=== PATIENT | female | born 1950 | race Caucasian/White ===

== ENCOUNTER 2019-02-26 17:29 | Inpatient (IN) | payer MEDICARE, OTHER ==
[2019-02-26] MEDS ORDERED: Piperacillin/Tazobac ADVAN(*) 3.375 GM in NS 0.9% 100 ML* 100 ML IVPB ONE ×2 (18:53→20:30)
[2019-02-26] MEDS ORDERED: Zosyn per Pharmacy* NOTE FOLLOW UP SCH (19:00)
[2019-02-26] MEDS ORDERED: Lactated Ringers 1000 ML Bag* 1,000 ML IV SCH (19:00)
[2019-02-26] MEDS ORDERED: Morphine 4 MG/ML VIAL (1 ml) 4 MG/ML VIAL ONE (19:05)
[2019-02-26] MEDS ORDERED: Ondansetron INJ* 2 MG/ML VIAL IV PRN (19:34)
[2019-02-26] MEDS: Enoxaparin(*) 40 MG/0.4 ML SYR SUBCUT SCH (20:19)
--- NOTE | 2019-02-26 20:19 | CONS ---
CONSULTATION REPORT: DATE OF CONSULT: 02/26/19 SERVICE: General Surgery. ATTENDING SURGEON: Dr. Eve Nur. REQUESTING PHYSICIAN: Dr. Delia Bartlett. REASON FOR CONSULT: Diverticulitis with small extraluminal air and localized perforation. HISTORY OF PRESENT ILLNESS: Ms. Tinajero is a very pleasant 68-year-old female with a history of hypertension, fibromyalgia, hypothyroidism, who presents as a direct admission for recurrent diverticulitis. The patient's history began approximately 2-1/2 weeks ago when she was seen by her primary care physician, Dr. Bartlett, for abdominal pain. She soon went to [place] to visit her daughter but her pain persisted and she was admitted to [facility] for acute diverticulitis. She says during her hospitalization she had a CT scan, she was made n.p.o., she was on IV antibiotics, and she was hospitalized for 4 days. She eventually improved to the point where her diet had been advanced and she was able to be discharged home on oral antibiotics. After this, she continued on oral antibiotics until 02/20/19; however, since then, she started feeling progressively worse and has had more abdominal pain. She was seen by Dr. Bartlett on Saturday and at that time had some pain, but began to progressively have more pain yesterday. In the past 24 hours, she says that her pain has worsened to the point where it is about 9/10. She says that her pain is limited to her lower abdomen on both the right ; however, overall it is still better than it was when she was admitted to [place]. Dr. Bartlett saw her in the office today and ordered a CT scan, which returned showing sigmoid diverticulitis as well as foci of pericolonic air reflecting a localized perforation; therefore, she was directly admitted by Dr. Bartlett, who requested surgical consultation. The patient currently complains of abdominal pain that she rates as a 9/10. She says that she does have nausea, but she denies having vomiting or emesis. She has been having diarrhea since yesterday, but prior to that she did not have a bowel movement since about Saturday. She normally alternates between being constipated and having diarrhea, and she had a colonoscopy approximately 6 months ago that she said was normal except for diverticulosis. There is no history of colon cancer in her family and she has had no abdominal surgical history in the past. PAST MEDICAL HISTORY: 1. Hypertension. 2. GERD. 3. Asthma. 4. Hypothyroidism. 5. Fibromyalgia. PAST SURGICAL HISTORY: Bilateral knee replacements and shoulder surgery. MEDICATIONS: 1. Cetirizine 10 mg p.o. daily. 2. Colace 100 mg p.o. daily. 3. Fiber 1 tab p.o. daily. 4. Advair 1 puff inhaled b.i.d. 5. Levothyroxine 25 mcg p.o. daily. 6. Cytomel p.o. b.i.d. 7. Multivitamin. 8. Daypro. 9. Nasacort. ALLERGIES: No known drug allergies. FAMILY HISTORY: Her father of cancer, but there is no known colon cancer history in her family. SOCIAL HISTORY: The patient is retired. She is a nonsmoker. She lives in [place] with her and she comes up to her home in [place] to see her daughter, who also lives in [place]. REVIEW OF SYSTEMS: Negative except for abdominal pain and nausea. PHYSICAL EXAM: Vital Signs: Temperature is 97.8, pulse is 80, respiratory rate is 16, O2 sat is 97% O2 on room air, blood pressure is 153/67. General: She is an older woman, lying comfortably in bed, in no apparent distress, but uncomfortable. HEENT is normocephalic, atraumatic. Cardiovascular is regular rate and rhythm. Respiratory is clear to auscultation bilaterally. Abdomen is soft, nondistended. Focal tenderness in the left lower quadrant, right lower quadrant and lower suprapubic area. No significant rebound tenderness. Some bruising to the abdominal wall from her prior heparin subcu shots. Extremities : No edema. DIAGNOSTIC STUDIES/LAB DATA: White blood cell count is 14.5, hemoglobin is 14.4 , hematocrit is 43, platelets 577. Sodium is 138, potassium is 4.3, chloride is 102, BUN is 9, creatinine is 0.75, glucose is 102. C-reactive protein is 6. CT abdomen and pelvis shows there is diverticulitis of the sigmoid colon, tiny extraluminal air consistent with a localized perforation. No peridiverticular abscess is noted. No hernia is identified. ASSESSMENT AND PLAN: Ms. Tinajero is a 68-year-old female with a history of hypertension, gastroesophageal reflux disease, asthma and hypothyroidism, who presents with recurrent diverticulitis. Her previous episode about 2-1/2 weeks ago and was her first time having diverticulitis. I have reviewed her imaging. The sigmoid colon is thickened and there is inflammation and on report a small focus of pericolonic air, which I do not definitively see. I have reviewed the diagnosis with the patient and I do not believe that she needs to go to the operating room at this time given that there is no significant abscess or free air or even a phlegmon. Furthermore, she is currently stable, and her white count is 14.5. I have told the patient that she would have to be n.p.o. again and be on IV antibiotics and hopefully she will improve during this hospitalization as well. However, if she fails to improve or if her clinical condition deteriorates, then she may have to go to the operating room for a sigmoid colectomy and likely an ostomy. I told her that with acute inflammation of the colon an ostomy is often performed. I told her if she is able to be discharged during this hospitalization, likely she will have to continue on antibiotics for a longer period of time as well as control her diet with clear liquids for a longer period of time after she is discharged. We will continue to follow this patient with you. Thank you for this consultation. I discussed this patient's care with Dr. Bartlett, who is directly admitting the patient. [id number]/[facility] #: [id number] THEE
[2019-02-26] MEDS: NS 0.45% KCl 20 Meq 1000 ML* 1,000 ML IV SCH (20:21)
[2019-02-26] MEDS: Morphine INJ* 2 MG/ML 1 ML SYRINGE (TWO MG - NEW SYRINGE VERSION) IV PRN ×2 (21:07→23:35)
--- NOTE | 2019-02-26 22:05 | HP ---
HISTORY AND PHYSICAL: DATE OF ADMISSION: 02/26/19 HISTORY: Mar Tinajero is a 68-year-old woman admitted with diverticulitis with perforation. The patient's history is as follows. She was admitted to [facility] on 02/12/19 with lower abdominal pain. She had not felt well the previous day. She had abdominal pain, which she thought was because she was constipated. She tried MiraLAX but it did not help. She had labs, mammogram done on . She then went with her daughter to visit [place]. When she got there, the pain was worse, so she went to an urgent care. She was diagnosed with diverticulitis. They sent her to the hospital and she was admitted for 4 days, treated with Zosyn and then discharged on cefpodoxime and metronidazole. Initially she was on clear liquids and then just on white foods. She was not having normal bowel movements when I saw her in followup on 02/23/19. When I saw her, her abdomen was soft with bilateral lower abdominal tenderness without rebound or guarding. We rechecked labs. I advanced her diet. Labs done on 02/23/19, showed a C- reactive protein of 10.88 and had been in the 90s previously, and white count was 11,000, H and H was 14/42. Since then she has had increasing abdominal pain. She was not feeling better. She came into the office today complaining of bloating and pain. On exam, her abdomen was diffusely more tender but still without rebound. I sent her for a CT, which showed a perforated colon. Her white count was up. I am admitting her at this time. PAST MEDICAL HISTORY: Significant for the following medical problems: 1. Fibromyalgia. 2. Hyperlipidemia. 3. Migraines. 4. Hypertension. 5. B12 deficiency. 6. Diverticulosis. 7. History of bladder prolapse. 8. Pituitary adenoma, benign and stable. 9. Essential tremor. 10. Hypothyroidism. 11. Asthma. 12. Osteoarthritis of the knees, status post bilateral knee replacements. 13. Gastroesophageal reflux disease. 14. Obesity. 15. Vitamin D deficiency. 16. Sleep apnea. 17. Chronic low back pain. PAST SURGICAL HISTORY: Prior surgeries include: 1. Bilateral knee replacements. 2. Left shoulder surgery. 3. Uterine biopsies twice, which were benign. 4. Excision of benign breast cyst. 5. Tonsillectomy and adenoidectomy in childhood. 6. Prior to her knee surgery, she has also had arthroscopic knee surgery in the past. CURRENT MEDICATIONS: 1. Diazepam 2 mg twice a day as needed for posterior headaches, takes rarely. 2. Hydrocodone 5/acetaminophen 325 one every 4 hours as needed for pain. 3. Levalbuterol 0.63/3 mL solution for nebulizer every 8 hours p.r.n. 4. Duloxetine 60 mg daily. 5. Vagifem 10 mg twice a week. 6. Soma 350 mg q.i.d. p.r.n. 7. Advair Diskus 250/50 twice a day. 8. Ventolin HFA 90 mcg 2 inhalations every 4 hours as needed for shortness of breath. 9. Primidone 50 mg 1 to 2 tablets at bedtime. 10. Pantoprazole 40 mg daily. 11. Amlodipine 5 mg daily. 12. Levothyroxine 100 mcg daily. 13. Flonase 2 sprays in each nostril daily. 14. B12 at 1000 mcg daily. 15. Magnesium 250 mg b.i.d. 16. Ondansetron 4 mg q.4 hours p.r.n. nausea. 17. Gaviscon p.r.n. 18. Calcium 1 daily. 19. Vitamin D3 at 2000 units daily. 20. Zyrtec 10 mg daily. 21. MultiVites 1 daily. ALLERGIES: No medication allergies. She has LACTOSE intolerance and she gets hives with STRAWBERRIES. FAMILY HISTORY: Her father had COPD and lung cancer, mother of dementia, 1 brother has a type 2 diabetes mellitus. Her maternal grandmother also had type 2 diabetes mellitus. SOCIAL AND PERSONAL HISTORY: The patient is retired. She and her are now living most of the time in [place]. They are planning to spend time in [place]. She has adult children. REVIEW OF SYSTEMS: Otherwise positive for chronic fatigue, difficulty sleeping , asthma, recent palpitations and rapid pulse which seemed to get better when thyroid dose was adjusted. Hemorrhoids, nocturia, chronic low back pain, migraine headaches, essential tremor. PHYSICAL EXAMINATION GENERAL: She is a obese, well-developed woman, uncomfortable, crying at times in distress with abdominal pain. VITAL SIGNS: Blood pressure 130/78, pulse 102, respirations 18, temperature 98.6, weight 223 pounds which is down 5-1/2 pounds since a month ago. HEENT: Atraumatic, normocephalic. Full EOMs. Mouth: Pharynx shows moist mucous membranes. NECK: Supple. CHEST: Clear. HEART: Normal S1, S2. No murmurs, gallops, or rubs. Apical pulse was 82. ABDOMEN: Soft with diffuse abdominal tenderness, which she rates 8/10 without rebound or guarding. No hepatosplenomegaly. No hernias or masses. Bowel sounds are active. EXTREMITIES: Show scars on the knees from recent total knee replacements. There is no clubbing, cyanosis, or edema. NEUROLOGIC: Without gross focal or lateralizing signs. SKIN: Warm and dry. DIAGNOSTIC STUDIES/LAB DATA: Laboratory from today shows, CBC: WBC 14.5, H and H 14.4/43, MCV 83, PLT 577 K. Chemistry: Sodium 138, potassium 4.3, chloride 102, CO2 30, BUN/creatinine 9/0.75, glucose 102. Rest of her comprehensive metabolic panel within normal limits. Imagiang: CT of the abdomen and pelvis done today shows stable lingular nodule. Thickening of the sigmoid colon with underlying diverticula with a small localized perforation. No abscess. No hernias. IMPRESSION: Diverticulitis with perforation. Plan is to admit her for IV fluids, n.p.o., Zosyn, surgical consultation, and morphine for pain. We will be following her along clinically and with labs. She is full code. DVT prophylaxis will be with enoxaparin. [id number]/[facility] #: [id number] [facility]
[2019-02-27] MEDS: ZOSYN 3.375 GM Q8H per EXTENDED INFUSION IVPB SCH ×6 (00:44→16:29)
[2019-02-27] MEDS: Morphine INJ* 2 MG/ML 1 ML SYRINGE (TWO MG - NEW SYRINGE VERSION) IV PRN ×8 (02:24→22:59)
[2019-02-27 06:05] LABS: ABS Basophils 0.1 10^3/ul (0-0.2); ABS Eosinophils 0.1 10^3/ul (0-0.6); ABS Lymphocytes 2.9 10^3/ul (1.0-4.8); ABS Monocytes 0.7 10^3/ul (0-0.8); ABS Neutrophils 6.7 10^3/ul (1.5-7.7); Hematocrit 41 % (35-47); Hemoglobin 13.8 g/dL (12.0-16.0); Lymphocyte % 28.1 %; Mean Corpuscular HGB Conc 33 g/dL (31-36); Mean Corpuscular Hemoglobin 28 pg (27-31); Mean Corpuscular Volume 83 fL (80-97); Mean Platelet Volume 7.6 fL (7.4-10.4); Platelet Count 491 10^3/uL (150-450); Red Blood Count 5.01 10^6 /uL (3.70-4.87); Red Cell Distribution Width 15 % (10-15); White Blood Count 10.5 10^3/uL (3.5-10.8)
[2019-02-27 06:22] LABS: BUN/Creatinine Ratio 8.6 (8-20); C Reactive Protein 7.54 mg/L (<8.01); Calcium 9.3 mg/dL (8.6-10.3); EGFR African American 85.1 (>60); EGFR Non-African American 70.3 (>60); Potassium 3.7 mmol/L (3.5-5.0)
[2019-02-27] MEDS ORDERED: Diazepam TAB(*) 5 MG PO PRN (07:03)
[2019-02-27] MEDS ORDERED: Albuterol HFA INHALER* 8 gm MDI INH PRN (07:03)
[2019-02-27] MEDS: Levothyroxine TAB* 100 MCG TAB PO SCH (07:26)
[2019-02-27] MEDS: Mometasone/Formoter 200/5 MDI INH SCH ×2 (08:08→19:58)
[2019-02-27] MEDS ORDERED: Cetirizine* 10 MG TAB PO SCH (09:00)
[2019-02-27] MEDS: Primidone TAB(*) 50 MG PO SCH (09:26)
[2019-02-27] MEDS: DULoxetine DR CAP* 60 MG CAP.DR PO SCH (09:26)
[2019-02-27] MEDS: Cetirizine* 10 MG TAB PO SCH (09:26)
[2019-02-27] MEDS: Pantoprazole TAB * 40 MG TAB PO SCH (09:26)
[2019-02-27] MEDS: FLUTICASONE PROPIONATE 55 MCG INH SCH (09:35)
--- NOTE | 2019-02-27 10:47 | PN ---
Progress Note - Progress Note Date of Service: 02/27/19 Note: Surgery Progress Note S: Patient feels better today because she has been receiving pain medications. She requires pain meds every few hours to control the pain. No further diarrhea. She has been afebrile. She has been ambulating. O: Vital Signs - 24 hr 02/26/19 02/26/19 02/26/19 18:23 18:28 19:08 Temperature 97.8 F Pulse Rate 80 Respiratory 16 16 18 Rate Blood Pressure 153/67 (mmHg) O2 Sat by Pulse 97 Oximetry 02/26/19 02/26/19 02/26/19 19:25 19:58 20:13 Temperature 98.7 F Pulse Rate 82 Respiratory 16 16 14 Rate Blood Pressure 146/71 (mmHg) O2 Sat by Pulse 95 Oximetry 02/26/19 02/26/19 02/26/19 21:07 22:00 23:18 Temperature 98.4 F Pulse Rate 79 Respiratory 16 16 16 Rate Blood Pressure 135/66 (mmHg) O2 Sat by Pulse 96 Oximetry 02/26/19 02/27/19 02/27/19 23:35 00:35 02:24 Temperature Pulse Rate Respiratory 16 16 16 Rate Blood Pressure (mmHg) O2 Sat by Pulse Oximetry 02/27/19 02/27/19 02/27/19 03:36 04:56 07:23 Temperature 98.8 F 97.3 F Pulse Rate 75 77 Respiratory 16 16 12 Rate Blood Pressure 127/55 143/68 (mmHg) O2 Sat by Pulse 94 93 Oximetry 02/27/19 02/27/19 02/27/19 07:26 07:55 08:09 Temperature Pulse Rate 75 Respiratory 16 18 18 Rate Blood Pressure (mmHg) O2 Sat by Pulse 94 Oximetry 02/27/19 02/27/19 02/27/19 08:54 09:28 10:08 Temperature Pulse Rate Respiratory 16 18 16 Rate Blood Pressure (mmHg) O2 Sat by Pulse Oximetry 02/27/19 10:36 Temperature Pulse Rate Respiratory 16 Rate Blood Pressure (mmHg) O2 Sat by Pulse Oximetry Laboratory Last Values WBC 10.5 10^3/uL (3.5-10.8) 02/27/19 05:52 RBC 5.01 10^6 /uL (3.70-4.87) H 02/27/19 05:52 Hgb 13.8 g/dL (12.0-16.0) 02/27/19 05:52 Hct 41 % (35-47) 02/27/19 05:52 MCV 83 fL (80-97) 02/27/19 05:52 MCH 28 pg (27-31) 02/27/19 05:52 MCHC 33 g/dL (31-36) 02/27/19 05:52 RDW 15 % (10-15) 02/27/19 05:52 Plt Count 491 10^3/uL (150-450) H D 02/27/19 05:52 MPV 7.6 fL (7.4-10.4) 02/27/19 05:52 Neut % (Auto) 63.4 % 02/27/19 05:52 Lymph % (Auto) 28.1 % 02/27/19 05:52 [place] % (Auto) 6.7 % 02/27/19 05:52 Eos % (Auto) 1.0 % 02/27/19 05:52 Baso % (Auto) 0.8 % 02/27/19 05:52 Absolute Neuts (auto) 6.7 10^3/ul (1.5-7.7) 02/27/19 05:52 Absolute Lymphs (auto) 2.9 10^3/ul (1.0-4.8) 02/27/19 05:52 Absolute Monos (auto) 0.7 10^3/ul (0-0.8) 02/27/19 05:52 Absolute Eos (auto) 0.1 10^3/ul (0-0.6) 02/27/19 05:52 Absolute Basos (auto) 0.1 10^3/ul (0-0.2) 02/27/19 05:52 Absolute Nucleated RBC 0.0 10^3/ul 02/27/19 05:52 Nucleated RBC % 0.0 02/27/19 05:52 Sodium 139 mmol/L (135-145) 02/27/19 05:52 Potassium 3.7 mmol/L (3.5-5.0) 02/27/19 05:52 Chloride 104 mmol/L (101-111) 02/27/19 05:52 Carbon Dioxide 27 mmol/L (22-32) 02/27/19 05:52 Anion Gap 8 mmol/L (2-11) 02/27/19 05:52 BUN 7 mg/dL (6-24) 02/27/19 05:52 Creatinine 0.81 mg/dL (0.51-0.95) 02/27/19 05:52 Est GFR ( Amer) 85.1 (>60) 02/27/19 05:52 Est GFR (Non-Af Amer) 70.3 (>60) 02/27/19 05:52 BUN/Creatinine Ratio 8.6 (8-20) 02/27/19 05:52 Glucose 108 mg/dL (70-100) H 02/27/19 05:52 Calcium 9.3 mg/dL (8.6-10.3) 02/27/19 05:52 C-Reactive Protein 7.54 mg/L (<8.01) 02/27/19 05:52 Intake & Output 02/26/19 02/27/19 02/27/19 22:59 06:59 14:59 Intake Total 0 0 561 Output Total 50 300 Balance -50 -300 561 Weight 223 lb Intake: IV Fluids 456 NS (0.45%) 20 meq KCL 456 IVPB 105 ABX - ZOSYN 105 Oral 0 0 Output: Urine 50 300 Other: # Bowel Movements 0 Physical exam: Abd- soft, non distended, tender in lower abdomen in both right and left lower quadrants, no rebound A/P: 68 F with recurrent diverticulitis and CT showing small extraluminal air indicating localized perforation. - Patient has been stable since examination yesterday and WBC and neutrophil count have normalized today. She remains afebrile though mangle tender cloth, requiring regular administration of medications for pain control. Recommend continuing NPO and IV Zosyn. When her pain has significantly improved can start her on clear liquid diet.
[2019-02-27] MEDS: NS 0.45% KCl 20 Meq 1000 ML* 1,000 ML IV SCH (15:17)
[2019-02-27] MEDS: NS 0.9% 500 ML* 500 ML IV ONE ×2 (15:51→15:52)
[2019-02-27] MEDS: amLODIPine TAB* 5 MG PO SCH (17:15)
[2019-02-27] MEDS: Enoxaparin(*) 40 MG/0.4 ML SYR SUBCUT SCH (20:17)
[2019-02-28] MEDS: ZOSYN 3.375 GM Q8H per EXTENDED INFUSION IVPB SCH ×6 (00:12→16:22)
[2019-02-28] MEDS: NS 0.45% KCl 20 Meq 1000 ML* 1,000 ML IV SCH ×3 (02:00→22:06)
[2019-02-28] MEDS: Levothyroxine TAB* 100 MCG TAB PO SCH (06:04)
[2019-02-28] MEDS: Mometasone/Formoter 200/5 MDI INH SCH ×2 (07:59→19:29)
[2019-02-28] MEDS: DULoxetine DR CAP* 60 MG CAP.DR PO SCH (08:28)
[2019-02-28] MEDS: FLUTICASONE PROPIONATE 55 MCG INH SCH (08:28)
[2019-02-28] MEDS: Pantoprazole TAB * 40 MG TAB PO SCH (08:28)
[2019-02-28] MEDS: Primidone TAB(*) 50 MG PO SCH (08:28)
[2019-02-28] MEDS: Cetirizine* 10 MG TAB PO SCH (08:28)
[2019-02-28] MEDS: amLODIPine TAB* 5 MG PO SCH (17:46)
[2019-02-28] MEDS: Enoxaparin(*) 40 MG/0.4 ML SYR SUBCUT SCH (20:44)
[2019-02-28] MEDS: Carisoprodol TAB* 350 MG PO PRN (20:46)
[2019-03-01] MEDS: ZOSYN 3.375 GM Q8H per EXTENDED INFUSION IVPB SCH ×8 (00:11→23:22)
[2019-03-01] MEDS: Levothyroxine TAB* 100 MCG TAB PO SCH (05:50)
[2019-03-01 06:38] LABS: ABS Basophils 0.1 10^3/ul (0-0.2); ABS Eosinophils 0.1 10^3/ul (0-0.6); ABS Lymphocytes 2.7 10^3/ul (1.0-4.8); ABS Monocytes 0.6 10^3/ul (0-0.8); ABS Neutrophils 5.9 10^3/ul (1.5-7.7); Hematocrit 38 % (35-47); Hemoglobin 12.8 g/dL (12.0-16.0); Lymphocyte % 28.8 %; Mean Corpuscular HGB Conc 34 g/dL (31-36); Mean Corpuscular Hemoglobin 28 pg (27-31); Mean Corpuscular Volume 82 fL (80-97); Platelet Count 375 10^3/uL (150-450); Red Blood Count 4.65 10^6 /uL (3.70-4.87); Red Cell Distribution Width 15 % (10-15); White Blood Count 9.3 10^3/uL (3.5-10.8)
[2019-03-01 06:58] LABS: BUN/Creatinine Ratio 6.2 (8-20); C Reactive Protein 24.43 mg/L (<8.01); Calcium 8.7 mg/dL (8.6-10.3); EGFR African American 109.7 (>60); EGFR Non-African American 90.6 (>60); Magnesium 1.8 mg/dL (1.9-2.7); Potassium 3.9 mmol/L (3.5-5.0)
[2019-03-01] MEDS: Mometasone/Formoter 200/5 MDI INH SCH ×2 (07:17→19:38)
[2019-03-01] MEDS: DULoxetine DR CAP* 60 MG CAP.DR PO SCH (08:16)
[2019-03-01] MEDS: Pantoprazole TAB * 40 MG TAB PO SCH (08:16)
[2019-03-01] MEDS: Cetirizine* 10 MG TAB PO SCH (08:16)
[2019-03-01] MEDS: Primidone TAB(*) 50 MG PO SCH (08:18)
[2019-03-01] MEDS: NS 0.45% KCl 20 Meq 1000 ML* 1,000 ML IV SCH ×2 (08:18→19:54)
[2019-03-01] MEDS: FLUTICASONE PROPIONATE 55 MCG INH SCH (08:23)
[2019-03-01] MEDS ORDERED: Magnesium Sulfate 2 GM IV* 2 GM/50 ML BAG IVPB ONE (08:44)
[2019-03-01] MEDS ORDERED: Iohexol 300* (CONTRAST) 10 ML SDV IV ONE (08:53)
[2019-03-01] MEDS: Morphine INJ* 2 MG/ML 1 ML SYRINGE (TWO MG - NEW SYRINGE VERSION) IV PRN ×4 (10:15→19:55)
--- NOTE | 2019-03-01 11:13 | PN ---
Progress Note - Progress Note Date of Service: 03/01/19 SOAP: Subjective: Pt seen and examined. Overnight events noted. Worsening abdo pain- though not as bad as admission. Repeat CT scan performed and reviewed. Continued sigmoid divertulitis w/o abscess. minimal appetite. Loose BMs with PO intake. Objective: [ Temp Pulse Resp BP Pulse Ox 97.7 F 81 18 145/61 96 03/01/19 07:26 03/01/19 07:26 03/01/19 10:15 03/01/19 07:26 03/01/19 07:26 Intake & Output 02/28/19 03/01/19 03/01/19 22:59 06:59 14:59 Intake Total 3470 105 1225 Output Total 2350 2800 900 Balance 1120 -2695 325 a and o x3 abdo: sot/ obese/ tender w/o local peritoneal signs at lower abdomen. labs noted nl WBC. CRP increased C diff positive Zosyn day 4 CT scan reviewed Assessment: HD 4 sigmoid diverticulitis, ? C diff Plan: abx- possibly change to cipro Flagyl- defer to medicine bowel rest will continue to follow
[2019-03-01] MEDS: Vancomycin CAP* 125 MG CAP PO SCH ×3 (13:39→19:55)
[2019-03-01] MEDS: metroNIDAZOLE IV 500 MG/100ML* 500 MG/100 ML BAG IVPB SCH ×2 (14:46→22:11)
[2019-03-01] MEDS: amLODIPine TAB* 5 MG PO SCH (16:47)
[2019-03-01] MEDS: Enoxaparin(*) 40 MG/0.4 ML SYR SUBCUT SCH (19:59)
[2019-03-02] MEDS: metroNIDAZOLE IV 500 MG/100ML* 500 MG/100 ML BAG IVPB SCH ×3 (06:13→22:03)
[2019-03-02] MEDS: Levothyroxine TAB* 100 MCG TAB PO SCH (06:13)
[2019-03-02 07:45] LABS: C Reactive Protein 23.37 mg/L (<8.01)
[2019-03-02] MEDS: ZOSYN 3.375 GM Q8H per EXTENDED INFUSION IVPB SCH ×4 (07:50→17:26)
[2019-03-02] MEDS: DULoxetine DR CAP* 60 MG CAP.DR PO SCH (07:54)
[2019-03-02] MEDS: Cetirizine* 10 MG TAB PO SCH (07:54)
[2019-03-02] MEDS: Mometasone/Formoter 200/5 MDI INH SCH ×2 (07:54→22:03)
[2019-03-02] MEDS: Fluticasone NASAL SPRAY 50MCG* 16 gm SPRAY BTL BOTH NARES SCH (07:54)
[2019-03-02] MEDS: Vancomycin CAP* 125 MG CAP PO SCH ×4 (07:55→20:29)
[2019-03-02] MEDS: Pantoprazole TAB * 40 MG TAB PO SCH (07:55)
[2019-03-02] MEDS: Primidone TAB(*) 50 MG PO SCH (07:55)
--- NOTE | 2019-03-02 08:59 | PN ---
Progress Note - Progress Note Date of Service: 03/02/19 Note: Surgery Progress Note S: Patient is feeling a little better. Pain is 3/10. She has not had any pain medications since yesterday evening. She has not had any diarrhea since yesterday. She is ambulating in her room. She doesn't have much of an appetite. She remains afebrile. O: Vital Signs - 24 hr 03/01/19 03/01/19 03/01/19 10:15 11:30 11:46 Temperature 96.1 F Pulse Rate 79 Respiratory 18 16 19 Rate Blood Pressure 140/70 (mmHg) O2 Sat by Pulse 93 Oximetry 03/01/19 03/01/19 03/01/19 13:38 15:14 15:44 Temperature 98.6 F Pulse Rate 80 Respiratory 16 18 16 Rate Blood Pressure 120/60 (mmHg) O2 Sat by Pulse 94 Oximetry 03/01/19 03/01/19 03/01/19 16:47 19:27 19:55 Temperature 98.5 F Pulse Rate 80 Respiratory 18 17 18 Rate Blood Pressure 140/70 (mmHg) O2 Sat by Pulse 93 Oximetry 03/01/19 03/01/19 03/02/19 20:01 21:14 00:11 Temperature 97.4 F Pulse Rate 74 Respiratory 18 18 18 Rate Blood Pressure 142/70 (mmHg) O2 Sat by Pulse 96 Oximetry 03/02/19 03/02/19 04:02 07:39 Temperature 97.4 F 97.5 F Pulse Rate 74 77 Respiratory 16 18 Rate Blood Pressure 156/65 132/70 (mmHg) O2 Sat by Pulse 95 94 Oximetry Intake & Output 03/01/19 03/02/19 03/02/19 22:59 06:59 14:59 Intake Total 1160 160 100 Output Total 600 250 Balance 560 -90 100 Intake: IV Fluids 980 NS (0.45%) 20 meq KCL 980 IVPB 110 100 ABX - FLAGYL 110 100 Oral 180 50 Output: Urine 600 250 Other: # Bowel Movements 0 Laboratory Results - last 24 hr 03/02/19 06:42 Magnesium 2.0 C-Reactive Protein 23.37 H Micro- c.diff + CT abd/pelvis 03/01- reviewed, diverticulitis present, no extraluminal air noted , no abscess Physical exam: Abd- soft, non distended, mildly tender in right lower quadrant A/P: 68 F with recurrent/persistent diverticulitis and c.diff - Recommend continuing abx, at present on flagyl, vanco and zosyn - Recommend continuing NPO for at least another day. She certainly appears to be improving clinically since admission and has remained afebrile with normal WBC. CT on Saturday does not show evidence of any abscess or free air, or pericolonic air seen last week.
[2019-03-02] MEDS: NS 0.45% KCl 20 Meq 1000 ML* 1,000 ML IV SCH (12:44)
[2019-03-02] MEDS: amLODIPine TAB* 5 MG PO SCH (17:27)
[2019-03-02] MEDS: Enoxaparin(*) 40 MG/0.4 ML SYR SUBCUT SCH (20:29)
[2019-03-02] MEDS: Morphine INJ* 2 MG/ML 1 ML SYRINGE (TWO MG - NEW SYRINGE VERSION) IV PRN (23:14)
[2019-03-03] MEDS: ZOSYN 3.375 GM Q8H per EXTENDED INFUSION IVPB SCH ×4 (00:48→08:00)
[2019-03-03] MEDS: NS 0.45% KCl 20 Meq 1000 ML* 1,000 ML IV SCH ×2 (02:02→13:07)
[2019-03-03] MEDS: metroNIDAZOLE IV 500 MG/100ML* 500 MG/100 ML BAG IVPB SCH ×3 (05:48→21:45)
[2019-03-03] MEDS: Levothyroxine TAB* 100 MCG TAB PO SCH (05:48)
[2019-03-03] MEDS: Primidone TAB(*) 50 MG PO SCH (08:41)
[2019-03-03] MEDS: Pantoprazole TAB * 40 MG TAB PO SCH (08:41)
[2019-03-03] MEDS: DULoxetine DR CAP* 60 MG CAP.DR PO SCH (08:41)
[2019-03-03] MEDS: Vancomycin CAP* 125 MG CAP PO SCH ×4 (08:41→20:29)
[2019-03-03] MEDS: Fluticasone NASAL SPRAY 50MCG* 16 gm SPRAY BTL BOTH NARES SCH (08:43)
[2019-03-03] MEDS: Mometasone/Formoter 200/5 MDI INH SCH ×2 (08:44→21:51)
[2019-03-03] MEDS: Cetirizine* 10 MG TAB PO SCH (08:44)
[2019-03-03] MEDS: Morphine INJ* 2 MG/ML 1 ML SYRINGE (TWO MG - NEW SYRINGE VERSION) IV PRN ×2 (10:16→20:24)
--- NOTE | 2019-03-03 11:17 | PN ---
Progress Note - Progress Note Date of Service: 03/03/19 Note: Surgery Progress Note *This note reflects examination done earlier this morning, approximately 8:15am S: Patient has about the same amount of pain in RLQ, unchanged. Started on clears yesterday by Dr. Bartlett and has diarrhea and cramping every time she drinks. She does not have increased pain with drinking. Otherwise no new events. O: Vital Signs: Temp Pulse Resp BP Pulse Ox 98.0 F 82 18 142/61 97 03/03/19 07:31 03/03/19 07:31 03/03/19 10:16 03/03/19 07:31 03/03/19 07:31 Intake & Output 03/02/19 03/03/19 03/03/19 22:59 06:59 14:59 Intake Total 350 1184 120 Output Total 1150 1200 750 Balance -800 16 630 Intake: IV Fluids 784 NS (0.45%) 20 meq KCL 784 Oral 350 400 120 Output: Urine 1150 1200 750 Abx: vancomycin and flagyl Physical exam: Abd- soft, tender in RLQ and RUQ quadrants, unchanged A/P: 68 F with diverticulitis and c.diff infection. - Would recommend not advancing beyond clears until pain improves - Per Dr. Bartlett, abx discussed with Dr. Lua yesterday and patient is on flagyl and vanco
[2019-03-03] MEDS: amLODIPine TAB* 5 MG PO SCH (17:33)
[2019-03-03] MEDS: Enoxaparin(*) 40 MG/0.4 ML SYR SUBCUT SCH (20:29)
[2019-03-04] MEDS: NS 0.45% KCl 20 Meq 1000 ML* 1,000 ML IV SCH (01:16)
[2019-03-04 05:48] LABS: ABS Basophils 0.1 10^3/ul (0-0.2); ABS Eosinophils 0.1 10^3/ul (0-0.6); ABS Lymphocytes 2.7 10^3/ul (1.0-4.8); ABS Monocytes 0.9 10^3/ul (0-0.8); ABS Neutrophils 7.3 10^3/ul (1.5-7.7); Eosinophil % 0.6 %; Hematocrit 39 % (35-47); Hemoglobin 13.1 g/dL (12.0-16.0); Lymphocyte % 24.3 %; Mean Corpuscular HGB Conc 33 g/dL (31-36); Mean Corpuscular Hemoglobin 27 pg (27-31); Mean Corpuscular Volume 82 fL (80-97); Mean Platelet Volume 8.2 fL (7.4-10.4); Nucleated Red Blood Cells % 0.1; Platelet Count 348 10^3/uL (150-450); Red Blood Count 4.81 10^6 /uL (3.70-4.87); Red Cell Distribution Width 14 % (10-15)
[2019-03-04 06:04] LABS: BUN/Creatinine Ratio 7.4 (8-20); C Reactive Protein 28.74 mg/L (<8.01); EGFR African American 104.1 (>60)
[2019-03-04] MEDS: Levothyroxine TAB* 100 MCG TAB PO SCH (06:20)
[2019-03-04] MEDS: metroNIDAZOLE IV 500 MG/100ML* 500 MG/100 ML BAG IVPB SCH ×3 (06:20→22:37)
[2019-03-04] MEDS: Mometasone/Formoter 200/5 MDI INH SCH ×2 (07:30→19:25)
[2019-03-04] MEDS: Vancomycin CAP* 125 MG CAP PO SCH ×4 (08:44→20:41)
[2019-03-04] MEDS: DULoxetine DR CAP* 60 MG CAP.DR PO SCH (08:44)
[2019-03-04] MEDS: Pantoprazole TAB * 40 MG TAB PO SCH (08:45)
[2019-03-04] MEDS: Primidone TAB(*) 50 MG PO SCH (08:45)
[2019-03-04] MEDS: Cetirizine* 10 MG TAB PO SCH (08:45)
[2019-03-04] MEDS: Fluticasone NASAL SPRAY 50MCG* 16 gm SPRAY BTL BOTH NARES SCH (08:46)
--- NOTE | 2019-03-04 11:32 | PN ---
Progress Note - Progress Note Date of Service: 03/04/19 Note: Surgery Progress Note *This note reflects examination and visit from earlier this morning, approximately 8:45am. S: Patient started soft foods yesterday. She said after dinner she started having cramping abdominal pain and gas with diarrhea. This was not the same pain as the diverticulitis tenderness. She is ambulating. She remains afebrile. Continues to have diarrhea throughout the night. O: Vital Signs: Temp Pulse Resp BP Pulse Ox 98.1 F 79 17 138/67 97 03/04/19 08:05 03/04/19 08:05 03/04/19 08:05 03/04/19 08:05 03/04/19 08:05 Laboratory Results - last 24 hr 03/04/19 03/04/19 05:36 05:36 WBC 11.0 H RBC 4.81 Hgb 13.1 Hct 39 MCV 82 MCH 27 MCHC 33 RDW 14 Plt Count 348 MPV 8.2 Neut % (Auto) 66.1 Lymph % (Auto) 24.3 [place] % (Auto) 8.1 Eos % (Auto) 0.6 Baso % (Auto) 0.9 Absolute Neuts (auto) 7.3 Absolute Lymphs (auto) 2.7 Absolute Monos (auto) 0.9 H Absolute Eos (auto) 0.1 Absolute Basos (auto) 0.1 Absolute Nucleated RBC 0.0 Nucleated RBC % 0.1 Sodium 136 Potassium 4.0 Chloride 105 Carbon Dioxide 25 Anion Gap 6 BUN 5 L Creatinine 0.68 Est GFR ( Amer) 104.1 Est GFR (Non-Af Amer) 86.0 BUN/Creatinine Ratio 7.4 L Glucose 99 Calcium 9.0 C-Reactive Protein 28.74 H Intake & Output 03/03/19 03/04/19 03/04/19 22:59 06:59 14:59 Intake Total 1560 2269 Output Total 1350 1700 300 Balance 210 569 -300 Intake: IV Fluids 1789 ABX - FLAGYL 203 NS (0.45%) 20 meq KCL 1586 Oral 1560 480 Output: Urine 1350 1700 300 Other: Date of Last Bowel 03/04/19 Movement # Bowel Movements 1 1 Estimated Stool Amount Medium Abx: vancomycin and flagyl Physical exam: less tender in the right lower quadrant, abdomen non distended A/P: 68 F with diverticulitis and c diff infection. - Patient clinically overall has been improving since her admission last week. The continued crampy diarrhea is likely from the c.diff infection. She is less tender but is still intermittently requesting pain medications. Her WBC is 11 today and she has remained afebrile. I discussed with Dr. Bartlett-- likely she can go home in a couple of days once she is tolerating a bit more liquids/ soft food and pain and diarrhea hopefully improve. She will have to remain on a low fiber, soft-liquid diet at home. Antibiotic regimen and length per Dr. Bartlett. - Surgery will sign off now. Please feel free to call with any questions or if patient needs to be seen again.
[2019-03-04] MEDS: amLODIPine TAB* 5 MG PO SCH (17:21)
[2019-03-04] MEDS: Morphine INJ* 2 MG/ML 1 ML SYRINGE (TWO MG - NEW SYRINGE VERSION) IV PRN (20:41)
[2019-03-04] MEDS: Enoxaparin(*) 40 MG/0.4 ML SYR SUBCUT SCH (20:41)
[2019-03-05] MEDS: metroNIDAZOLE IV 500 MG/100ML* 500 MG/100 ML BAG IVPB SCH ×3 (06:21→21:52)
[2019-03-05] MEDS: Levothyroxine TAB* 100 MCG TAB PO SCH (06:21)
[2019-03-05 06:47] LABS: ABS Basophils 0.1 10^3/ul (0-0.2); ABS Eosinophils 0.1 10^3/ul (0-0.6); ABS Lymphocytes 2.7 10^3/ul (1.0-4.8); ABS Monocytes 0.7 10^3/ul (0-0.8); ABS Neutrophils 5.4 10^3/ul (1.5-7.7); Eosinophil % 0.9 %; Hematocrit 40 % (35-47); Hemoglobin 13.6 g/dL (12.0-16.0); Lymphocyte % 30.1 %; Mean Corpuscular HGB Conc 34 g/dL (31-36); Mean Corpuscular Hemoglobin 28 pg (27-31); Mean Corpuscular Volume 82 fL (80-97); Mean Platelet Volume 8.5 fL (7.4-10.4); Nucleated Red Blood Cells % 0.1; Platelet Count 356 10^3/uL (150-450); Red Blood Count 4.88 10^6 /uL (3.70-4.87); Red Cell Distribution Width 14 % (10-15)
[2019-03-05] MEDS: Mometasone/Formoter 200/5 MDI INH SCH ×2 (07:37→19:42)
[2019-03-05] MEDS: Primidone TAB(*) 50 MG PO SCH (08:42)
[2019-03-05] MEDS: Pantoprazole TAB * 40 MG TAB PO SCH (08:42)
[2019-03-05] MEDS: Vancomycin CAP* 125 MG CAP PO SCH ×4 (08:43→21:51)
[2019-03-05] MEDS: Cetirizine* 10 MG TAB PO SCH (08:43)
[2019-03-05] MEDS: DULoxetine DR CAP* 60 MG CAP.DR PO SCH (08:43)
[2019-03-05] MEDS: Fluticasone NASAL SPRAY 50MCG* 16 gm SPRAY BTL BOTH NARES SCH (08:43)
[2019-03-05] MEDS: amLODIPine TAB* 5 MG PO SCH (17:33)
[2019-03-05] MEDS: Carisoprodol TAB* 350 MG PO PRN (21:51)
[2019-03-05] MEDS: Enoxaparin(*) 40 MG/0.4 ML SYR SUBCUT SCH (21:53)
[2019-03-06] MEDS: Levothyroxine TAB* 100 MCG TAB PO SCH (06:12)
[2019-03-06] MEDS: Carisoprodol TAB* 350 MG PO PRN (06:12)
[2019-03-06] MEDS: metroNIDAZOLE IV 500 MG/100ML* 500 MG/100 ML BAG IVPB SCH ×2 (06:15→06:31)
[2019-03-06 08:05] VITALS: BP 120/70
[2019-03-06] MEDS: Mometasone/Formoter 200/5 MDI INH SCH (08:09)
[2019-03-06 08:10] LABS: Hematocrit 40 % (35-47); Hemoglobin 13.6 g/dL (12.0-16.0); Mean Corpuscular HGB Conc 34 g/dL (31-36); Mean Corpuscular Hemoglobin 28 pg (27-31); Mean Corpuscular Volume 82 fL (80-97); Mean Platelet Volume 8.6 fL (7.4-10.4); Platelet Count 314 10^3/uL (150-450); Red Blood Count 4.85 10^6 /uL (3.70-4.87); Red Cell Distribution Width 14 % (10-15); White Blood Count 8.1 10^3/uL (3.5-10.8)
[2019-03-06] MEDS: DULoxetine DR CAP* 60 MG CAP.DR PO SCH (09:39)
[2019-03-06] MEDS: Fluticasone NASAL SPRAY 50MCG* 16 gm SPRAY BTL BOTH NARES SCH (09:40)
[2019-03-06] MEDS: Pantoprazole TAB * 40 MG TAB PO SCH (09:40)
[2019-03-06] MEDS: Vancomycin CAP* 125 MG CAP PO SCH (09:40)
[2019-03-06] MEDS: Cetirizine* 10 MG TAB PO SCH (09:42)
--- NOTE | 2019-03-06 11:02 | DS ---
DISCHARGE SUMMARY: DATE OF ADMISSION: 02/26/19 DATE OF DISCHARGE: 03/06/19 DISCHARGE DIAGNOSES: 1. Diverticulitis with perforation. 2. Clostridioides difficile infection. 3. Hypothyroidism, treated. 4. History of asthma. 5. Essential tremor. 6. Benign neoplasm of pituitary gland. 7. Bilateral primary osteoarthritis of the knees, status post bilateral knee replacements. 8. Gastroesophageal reflux, on proton pump inhibitor. 9. Fibromyalgia. 10. Obesity. 11. History of sleep apnea. 12. Osteopenia. 13. History of low back pain. 14. Hyperlipidemia. 15. History of migraine. 16. Hypertension. 17. History of gastric ulcer. HISTORY: Mar Tinajero is a 68-year-old woman admitted with abdominal pain in the setting of recent hospitalization for diverticulitis. Outpatient CT scan had shown diverticulitis with perforation. Please see the dictated admission note for details of the present illness, past medical history, family history, social and personal history, review of systems, and physical examination. DIAGNOSTIC STUDIES/LAB DATA: Laboratory Data: CBC on 02/26/19: WBC 14.5, H and H 14.4/43, MCV 83, PLT 577,000. Subsequent white count went down to 9.3 on 03/01/19, was up to 11 on 03/04/19, was down to 8.1 on 03/06/19. H and H remained relatively stable. Chemistries on 02/26/19, sodium 138, potassium 4.3 , chloride 102, CO2 of 30, BUN and creatinine 9/0.75, glucose 102, calcium 10.1. Rest of her comprehensive metabolic panel was within normal limits. Electrolytes, BUN and creatinine remained relatively stable. CRP on 02/26/19 was 6.06, went up to 24.43 on 03/01/19 and then was 28.74 on 03/04/19 and down to 21.60 on 03/06/19. Stool for C. diff on 03/01/19 was positive with presumptive negative for 0 to 7. Imaging: CT of the abdomen and pelvis on 02/26/19 showed diverticulitis with small perforation in the sigmoid colon, no abscess. Abdomen and pelvis CT on showed diverticulitis without abscess. The previous extraluminal gas noted was no longer seen. CONSULTATION: Surgery, Dr. Eve Nur with followups by Dr. Nur and Dr. Thomas, felt that the patient had diverticulitis, did not require surgery and then subsequently had Clostridium difficile infection. HOSPITAL COURSE: The patient was admitted with what was felt to be a bowel perforation in the setting of diverticulitis. She was placed on IV fluids, n.p.o., Zosyn. Surgical consultation was obtained (see above). She was given morphine for pain. She was a full code. DVT prophylaxis was given with enoxaparin. She seemed to initially improve. She was initially n.p.o., then placed on clear liquids. On 03/01/19, she had abdominal cramping with a lot of diarrhea. Stool for C. diff on 03/01/19 was positive for C. diff. Her low magnesium was repleted. When we got the report from the microbiology showing C. diff, she was started on vancomycin p.o. and metronidazole was given IV. Zosyn was subsequently stopped. She received a couple more days after 03/02/19 (I thought it had been discontinued, but it had not been). She continued to have cramping pain after eating. Diet was eventually advanced to a low-residue diet. The case was discussed with infectious disease. They recommended the treatment as noted above. They recommended 2 weeks of p.o. vancomycin at the time of discharge. On 03/05/19, she was feeling somewhat better. Her belly was soft, mildly tender with only slight rebound. On the day of discharge, 03/06/19 , her abdomen was still soft with bilateral lower quadrant tenderness, right greater than left with rebound. She was feeling a little less well than she had been the day before, which she attributed to not sleeping well. Her stools were formed. She felt ready to go home. She is to go home on activity as tolerated, low-residue diet, avoid greasy foods, avoid roughage, drink Kefir and eat yoghurt as tolerated (the patient does say she has lactose intolerance) . She might be able to tolerate this, however. Conditon is improved. MEDICATIONS AT THE TIME OF DISCHARGE: As follows: 1. Vancomycin 125 mg 4 times a day for an additional 10 days. 2. Diazepam 2 mg b.i.d. p.r.n. 3. Albuterol 1 puff q.4 h. p.r.n. 4. Flonase 50 mcg 1 to 2 sprays daily each nostril. 5. Ondansetron 8 mg daily as needed. 6. Calcium plus D, magnesium chloride as before. 7. Zyrtec 10 mg daily. 8. Hydrocodone/acetaminophen 5/325 one to two tabs every 4 hours as needed for pain. 9. Carisoprodol 350 mg t.i.d. p.r.n. 10. Vagifem (Yuvafem 10 mcg) twice a day. 11. Pantoprazole 40 mg daily. 12. Amlodipine 5 mg daily. 13. Duloxetine 60 mg daily. 14. Primidone 100 mg daily. 15. Levothyroxine 0.1 mg daily. 16. Advair 250/50 one puff twice a day. DISCHARGE INSTRUCTIONS: The patient was advised that 25% of people with C. diff have recurrent disease. Followup will be in 4 to 7 days. The patient is also in the process of moving to [place]. She will stay in the [facility] until we get followup. I strongly advised her to find a primary care physician in [place] before going down there so that I could communicate her problems and should have someone to call if symptoms recur. [id number]/CPS #: [id number] MTDD
== END 2019-03-06 10:55 | disposition home or self-care (01) | DRG 392 ==
LOC: SSU 17:41 → OBSVTOIN 17:41 → UNDOADMOB 17:47 → SSU 17:47
PROVIDERS: ADMIT Internal Medicine Geriatric Medicine; ATTEND Internal Medicine Geriatric Medicine
DX: K57.20 Diverticulitis of large intestine with perforation and abscess without bleeding (principal); A04.72 Enterocolitis due to Clostridium difficile, not specified as recurrent; E03.9 Hypothyroidism, unspecified; J45.909 Unspecified asthma, uncomplicated; G25.0 Essential tremor; E23.6 Other disorders of pituitary gland; Z96.653 Presence of artificial knee joint, bilateral; K21.9 Gastro-esophageal reflux disease without esophagitis; M79.7 Fibromyalgia; E66.9 Obesity, unspecified; G47.30 Sleep apnea, unspecified; M85.80 Other specified disorders of bone density and structure, unspecified site; E78.5 Hyperlipidemia, unspecified; G43.909 Migraine, unspecified, not intractable, without status migrainosus; I10 Essential (primary) hypertension; D35.2 Benign neoplasm of pituitary gland; G89.29 Other chronic pain; M54.5 Low back pain; E53.8 Deficiency of other specified B group vitamins; E55.9 Vitamin D deficiency, unspecified; R53.82 Chronic fatigue, unspecified; K64.9 Unspecified hemorrhoids; R35.1 Nocturia; Z68.36 Body mass index [BMI] 36.0-36.9, adult; Z91.011 Allergy to milk products; Z91.018 Allergy to other foods; Z80.1 Family history of malignant neoplasm of trachea, bronchus and lung; Z82.5 Family history of asthma and other chronic lower respiratory diseases; Z83.3 Family history of diabetes mellitus
CPT/HCPCS: 36415; 74177; 76705; 80048; 83735; 85025; 85027; 86140; 87493; 94640; A9270-GY; J1650; J2270; J2543; J3475; J3490; Q9967